=== PATIENT | female | born 1955 | race Caucasian/White ===

== ENCOUNTER 2022-06-14 10:08 | Outpatient (CLI) | payer OTHER, SELFPAY ==
--- NOTE | 2022-06-14 | ECHO_ITS ---
Patient Info Name: Beulah Dickinson Age: 66 years : 1955 Gender: Female Ht: 67 in Wt: 154 lbs BSA: 1.82 m2 HR: 80 bpm BP: 163 / 86 mmHg Heart Rhythm: Sinus Rhythm Technical Quality: Fair Exam Date: 06/14/2022 11:33 AM Exam Location: [facility] Patient Status: Outpatient Admit Date: 06/14/2022 Staff Ordering Physician: Kush Craft MD Engine Room Operator: Yelena Valdivia RDCS Attending Provider: Kush Craft MD Referring Physician: Luana LAMAR; Exam Type: CA echo doppler color flow Study Info Indications R06.00 - Dyspnea, unspecified Complete two-dimensional, color flow and Doppler transthoracic echocardiogram is performed. Strain analysis performed. Summary 1. Complete two-dimensional, color flow and Doppler transthoracic echocardiogram is performed. 2. Strain analysis performed. 3. Left ventricular chamber dimension is normal. 4. Left ventricular systolic function is normal, estimated at 60-65%. 5. There is mildly increased left ventricular wall thickness. 6. The left ventricular diastolic function is grade I diastolic dysfunction. 7. The basal inferoseptal is hypokinetic. 8. Global longitudinal strain is abnormal at -15 %. 9. There is mild aortic valve sclerosis. 10. There is mild tricuspid valve regurgitation. Left Ventricle Left ventricular chamber dimension is normal. Left ventricular systolic function is normal, estimated at 60-65%. There is mildly increased left ventricular wall thickness. The left ventricular diastolic function is grade I diastolic dysfunction. Global longitudinal strain is abnormal at -15 %. The basal inferoseptal is hypokinetic. All other alvares appear normal. Right Ventricle Right ventricular chamber dimension is normal. Right ventricular systolic function is normal. Left Atria Left atrial chamber dimension is normal. Right Atria Right atrial chamber dimension is normal. Atrial Septum Intact interatrial septum visualized by color flow imaging. Aortic Valve The aortic valve is trileaflet. There is mild aortic valve sclerosis. There is no aortic valve stenosis. There is trace aortic valve regurgitation. Pulmonic Valve The pulmonic valve is normal. There is no pulmonic valve stenosis. There is trace pulmonic regurgitation. Mitral Valve The mitral valve has normal leaflets. There is no mitral valve stenosis. There is trace mitral valve regurgitation. Tricuspid Valve The tricuspid valve leaflets are normal. There is no significant tricuspid valve stenosis. There is mild tricuspid valve regurgitation. No pulmonary hypertension, estimated pulmonary arterial systolic pressure is 28 mmHg. Pericardium/Pleural The pericardium appears normal. There is no pericardial effusion. Inferior Vena Cava Normal inferior vena cava with >50% collapse upon inspiration consistent with normal right atrial pressure, 10 mmHg. Aorta The aortic root size at the sinus of Valsalva is normal. Left Ventricular Outflow Tract Name Value Normal LVOT 2D LVOT Diameter 1.9 cm LVOT Doppler LVOT Peak Gradient 4 mmHg
[2022-06-14 10:00] VITALS: PULSE 82; O2SAT 94
[2022-06-14 10:05] VITALS: PULSE 107; O2SAT 88
[2022-06-14 10:10] VITALS: PULSE 108; O2SAT 91
[2022-06-14 10:25] VITALS: PULSE 84; O2SAT 94
--- NOTE | 2022-06-14 11:14 | HOMEO2EVAL ---
Evaluation was performed at [facility] Home Oxygen Evaluation RC: Home Oxygen (O2) Evaluation Start: 06/14/22 11:12 Freq: Status: Active Protocol: RPE Activity Type Activity Date Activity User E-sign Co-sign Detail Recorded Client Recorded Date Recorded By Document 06/14/22 10:00 [email or web address] [email or web address] 06/14/22 11:14 DJO Document 06/14/22 10:05 [email or web address] [email or web address] 06/14/22 11:14 DJO Document 06/14/22 10:10 [email or web address] [email or web address] 06/14/22 11:14 DJO Document 06/14/22 10:25 [email or web address] [email or web address] 06/14/22 11:14 DJO 06/14/22 06/14/22 06/14/22 10:00 10:05 10:10 Home O2 Evaluation [Oxygen] -Test Phase Resting Exercise Exercise -Oxygen Delivery Room Air Room Air Nasal Cannula -Oxygen Flow Rate (L/min) 1 [Pulse Oximetry] -Pulse Oximetry (90-100 %) 94 88 L 91 [Pulse Rate] -Pulse Rate (60-100 beats/min) 82 107 H 108 H [Evaluation] -Activity Tolerance Good [Exercise] -Ambulation Distance (feet) 800 -Ambulation Distance (meters) 243.82 [Charges] -Treatment Charges O2 Evaluation - Outpatient 06/14/22 10:25 Home O2 Evaluation [Oxygen] -Test Phase Resting -Oxygen Delivery Room Air -Oxygen Flow Rate (L/min) [Pulse Oximetry] -Pulse Oximetry (90-100 %) 94 [Pulse Rate] -Pulse Rate (60-100 beats/min) 84 [Evaluation] -Activity Tolerance [Exercise] -Ambulation Distance (feet) -Ambulation Distance (meters) [Charges] -Treatment Charges
--- NOTE | 2022-06-15 11:10 | WPDPFTINT ---
PFT Procedure Performed PFT Procedure Performed Plethysmography (Lung Vol) Diffusing Cap (DLCO) Flow Vol Loop Spirometry w/o Bronchodil PFT Interpretation DOS: 06/14/2022 REQUESTING: Dr. Kush Craft REASON FOR TESTING: COPD PULMONARY FUNCTION TESTS Results are reliable and reproducible. Spirometry: FEV1 is 0.83 L, 33% predicted, severely decreased. FVC is 2.10 L, 65%, mildly decreased. FEV1/FVC ratio is 40%, reduced, consistent with airflow obstruction. No bronchodilator was administered. Lung volumes: Total lung capacity is 6.44, 117%, upper limits of normal. Residual volume is 4.34, 189% predicted, severely increased. Airway resistance 5.89, 488% predicted, increased. Diffusion: DLCO 9.7, 44% predicted, severely reduced. DLCO/VA is 3.17, 76%, normal. Flow volume loop: There is scooping of the expiratory limb consistent with airflow obstruction IMPRESSION: This study shows a severe obstructive ventilatory impairment, severe air trapping and severe diffusion impairment which partially corrects for alveolar volume. No bronchodilator was given. This pattern is consistent with emphysema. Bela Dick MD
== END 2022-06-14 10:09 | disposition home or self-care (01) ==
PROVIDERS: PCP Nurse Practitioner; Visit Provider Internal Medicine
DX: J44.9 Chronic obstructive pulmonary disease, unspecified (principal); R06.00 Dyspnea, unspecified; R94.2 Abnormal results of pulmonary function studies
CPT/HCPCS: 93306; 94375; 94618; 94726; 94729